=== PATIENT | male | born 1990 | race Caucasian/White ===

== ENCOUNTER 2016-09-02 10:53 | Emergency (ER) | payer SELFPAY ==
[~2016-09-02] VITALS: Ht 182.9 cm; Wt 75.0 kg
[2016-09-02] MEDS ORDERED: HYDROCODONE/ACETAMINOPHEN 10-325 MG TABLET PO ONE (12:30)
[2016-09-02] MEDS ORDERED: KETOROLAC TROMETHAMINE 60 MG/2 ML VIAL IM ONE (12:30)
[2016-09-02 12:35] VITALS: BP 128/71
== END 2016-09-02 13:16 | disposition home or self-care (01) ==
LOC: EMS 10:55
DX: G44.209 Tension-type headache, unspecified, not intractable (principal); H53.149 Visual discomfort, unspecified; F17.210 Nicotine dependence, cigarettes, uncomplicated
CPT/HCPCS: 96372; 99283; J1885